=== PATIENT | female | born 1995 ===

== ENCOUNTER 2020-03-09 09:00 | Inpatient (IN) | payer OTHER ==
[2020-03-09] MEDS ORDERED: ELECTROLYTE-148 SOLN 500 ML IV SCH (09:30)
[2020-03-09] MEDS ORDERED: CITRIC ACID/SODIUM CITRATE 30 ML UNIT-DOSE CUP PO ONE (09:30)
[2020-03-09] MEDS: ELECTROLYTE-148 SOLN 1,000 ML IV SCH (10:05)
[2020-03-09 10:12] VITALS: BMI 28.7
[2020-03-09 10:28] LABS: INR 0.9 (0.83-1.09); PROTHROMBIN TIME (PATIENT) 11.1 SEC (9.7-13.0)
[2020-03-09 10:31] LABS: ACTIVATED PTT 25.2 SECONDS (25.2-36.5)
[2020-03-09] MEDS ORDERED: ceFAZolin SODIUM 1 GM VIAL ONE (11:01)
[2020-03-09] MEDS ORDERED: OXYTOCIN 10 UNITS/ML VIAL ONE (11:01)
[2020-03-09] MEDS ORDERED: morphine SULFATE/PF 0.5 MG/ML (2cc Syringe - QUVA) ONE (11:01)
[2020-03-09] MEDS ORDERED: PHENYLEPHRINE HCL 10 MG/1 ML SINGLE DOSE VIAL ONE ×2 (11:01)
[2020-03-09] MEDS ORDERED: OXYTOCIN 20 UNITS in 0.9% NS 20 UNIT/1,000 ML INFUS.BAG IV ONE ×2 (11:05→13:51)
[2020-03-09] MEDS ORDERED: MIDAZOLAM HCL 2 MG/2 ML SINGLE DOSE VIAL ONE (12:08)
[2020-03-09] MEDS ORDERED: IBUPROFEN 800 MG/8 ML IJ IVPB PRN (12:56)
[2020-03-09] MEDS ORDERED: ONDANSETRON 4 MG/2 ML VIAL IVPB PRN (12:56)
[2020-03-09] MEDS ORDERED: SENNOSIDES/DOCUSATE COMBO (SENNA PLUS) TABLET (UD) PO PRN (12:56)
[2020-03-09] MEDS ORDERED: ACETAMINOPHEN 1000 MG/100 ML VIAL (NON FORMULARY) IVPB PRN (12:56)
[2020-03-09] MEDS ORDERED: oxyCODONE HCL 5 MG TABLET PO PRN (12:56)
[2020-03-09] MEDS ORDERED: OXYTOCIN 20 UNITS in 0.9% NS 20 UNIT/1,000 ML INFUS.BAG IV SCH (13:00)
[2020-03-09 13:03] LABS: CORD BASE EXCESS -2.5 mmol/L (0-2); CORD HCO3 24.8 mmHg (20-29); CORD PCO2 52.6 mmHg (30-78); CORD pH 7.292 (7.14-7.44)
[2020-03-09] MEDS ORDERED: LACTATED RINGERS SOLUTION 1,000 ML IV SCH (13:30)
[2020-03-10 07:25] LABS: BASO % 0.5 % (0-2.0); EOS % 0.6 % (0-4.5); HEMATOCRIT 32.8 % (32.4-45.2); HEMOGLOBIN 10.9 GM/dL (10.7-15.3); LYMPH % 13.2 % (8-40); MCHC 33.3 g/dl (32.0-36.0); MEAN CELL VOLUME 75.2 fl (80-96); MEAN PLT VOLUME 8.6 fl (7.5-11.1); MONO % 5.4 % (3.8-10.2); NEUT % 80.3 % (42.8-82.8); PLATELET COUNT 157 K/MM3 (134-434); RBC 4.36 M/mm3 (3.60-5.2); RDW 18.1 % (11.6-15.6); WHITE BLOOD COUNT 10.8 K/mm3 (4.0-10.0)
[2020-03-10] MEDS: IBUPROFEN 600 MG TABLET (FP) PO PRN ×2 (10:37→18:37)
[2020-03-10] MEDS: SIMETHICONE 80 MG TAB.CHEW (FP) PO PRN ×2 (10:38→18:37)
[2020-03-10] MEDS: ACETAMINOPHEN 325 MG TABLET (FP) PO PRN ×2 (10:38→18:37)
[2020-03-10] MEDS ORDERED: BISACODYL 10 MG SUPP.RECT RC PRN (12:57)
[2020-03-11] MEDS: ACETAMINOPHEN 325 MG TABLET (FP) PO PRN ×2 (01:42→09:23)
[2020-03-11] MEDS: SIMETHICONE 80 MG TAB.CHEW (FP) PO PRN ×2 (01:42→09:23)
[2020-03-11] MEDS: IBUPROFEN 600 MG TABLET (FP) PO PRN ×2 (01:43→09:23)
[2020-03-11 11:19] VITALS: BP 111/69; PULSE 96; TEMP 97.7
[2020-03-11] MEDS: ELECTROLYTE-148 SOLN 1,000 ML IV SCH (12:15)
== END 2020-03-11 14:25 | disposition home or self-care (01) | DRG 788 ==
LOC: EDBD → JLDR 09:00 → J3W 14:47
PROVIDERS: ADMIT Family Medicine; ATTEND Family Medicine
PROC: 10D00Z1 Extraction of Products of Conception, Low, Open Approach (ICD-10-PCS; principal; 2020-03-09)
DX: O32.1XX0 Maternal care for breech presentation, not applicable or unspecified (principal); Z3A.39 39 weeks gestation of pregnancy; Z37.0 Single live birth
CPT/HCPCS: 36415; 36600; 82803; 85025; 85610; 85730; 86780; 86850; 86900; 86901; 88307-TC